=== PATIENT | male | born 1970 | race Caucasian/White ===

== ENCOUNTER → 2017-04-15 | Day surgery (SDC) | payer BC ==
[~2017-04-15] MED LIST: BUPIVACAINE HCL PF 0.75% 30 ML VIAL ONE; BUPIVACAINE/EPINEPHRINE 0.25% 50 ML VIAL ONE; EPINEPHrine HCL (1:1000) 1 MG/ML VIAL OTHER ONE; LACTATED RINGER'S 1000 ML INJ 1,000 ML ONE; LIDOCAINE 1.5%/EPINEPHrine 1:200,000 PF SOLN 30 ML AMP ONE; MIDAZOLAM HCL 5 MG/ML VIAL (1 ML) ONE; ONDANSETRON HCL 4 MG/2 ML VIAL IV PUSH ONE; PROPOFOL 200 MG/20 ML AMP IV ONE; ceFAZolin INJ 1,000 MG VIAL ONE
--- NOTE | 2017-04-15 11:40 | TN ---
cc: ALCIDES MATTHEW M.D. DATE OF SURGERY 04/15/2017 PREOPERATIVE DIAGNOSIS 1. Right shoulder rotator cuff tendonitis and impingement. 2. 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 POSTOPERATIVE DIAGNOSIS 1. Right shoulder rotator cuff tendonitis and impingement. 2. 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 PROCEDURE PERFORMED 1. Right shoulder arthroscopy with subacromial decompression (acromioplasty and coracoacromial ligament release) 2. Right shoulder arthroscopy with partial distal clavicle excision (10mm). SURGEON Alcides Matthew MD ANESTHESIA General via laryngeal mask augmented by interscalene block and local infiltration. BLOOD LOSS Minimal FLUID REPLACEMENT 900 cc's of crystalloid. SPECIMEN No specimens were sent. COUNTS All counts were correct. IMPLANTS There were no implants. COMPLICATIONS There were no intraoperative complications. INDICATIONS FOR THE PROCEDURE Mr. Early is a 46-year-old gentleman who has been experiencing problems with persistent right shoulder pain, weakness, stiffness and has had failure to have improvement with conservative treatment that has included medications, injections, and activity modification and strengthening program. As a result of his persistent symptoms, he was given the option for surgical decompression and he elected to move forward with it as opposed to going through repetitive injections. He was aware of the risks, benefits, potential complications and limitations of the procedure and a full written informed consent was obtained. DESCRIPTION OF PROCEDURE After the patient was appropriately identified in the holding area, he had correctly marked his right shoulder and I had initialed it as well. He was then given one gram of intravenous Ancef as prophylactic antibiotic and then also underwent an ultrasound-guided interscalene block by anesthesia. At this time, he was taken into the operating suite where he was placed under general laryngeal mask anesthetic by Dr. Ortega and then he was carefully placed in the lateral decubitus position with the right side up and the left side down on a beanbag well padded with pillows between the legs and appropriate padding over all bony prominences. He had a axillary roll placed as well. He then had an Protek-dorrex RxVault.in arm ernst applied to the right arm keeping him at approximately 45 degrees of abduction and neutral flexion. I initially started the procedure with 10 pounds of weight. He was then prepped with alcohol and Hibiclens and then draped in the normal standard fashion including impervious drape over the mid arm all the way down to the hand. At this time, a brief time-out was held confirming the right shoulder was the appropriate surgical site. The team was in agreement and the case was now begun. At this time, a standard posterior glenohumeral portal was established. I made the incision slightly more proximal in order to be able to redirected it in the subacromial space later. I was able to get into the glenohumeral joint without difficulty. Minimal effusion was appreciated. There was no evidence of any significant chondromalacia, labral tear, or biceps lesion. There was also no evidence of any rotator cuff tear. There was no need for additional portals in the joint. I suction decompressed it and attention was now directed to the subacromial space. The subacromial space was initially entered from behind through the modified posterior glenohumeral portal and then I made an accessory portal almost directly lateral at the subacromial space. As soon as the scope entered into the subacromial space, there was significant impingement appreciated both at the level of the acromion as well as at the level of the distal clavicle. I began performing a soft tissue decompression consisting of bursectomy, as well as removing some of the scar like tissue that had begun to form on the surface of the acromion. A small synovial plica type shelf was seen just over the lateral edge of the shoulder as well that I debrided. There was some erythema on the surface of the cuff and some very superficial fraying of some of the suprspinatus fibers , but no evidence of any significant depth to this was appreciated. The arm was placed in further traction of 5 pounds in order to further visualize the cuff in detail and no evidence of any tear was identified. At this time after performing coracoacromial acromial ligament release with electrocautery, I was able to see that there was a large anterior acromial spur that was causing high grade subacromial impingement. I performed a generous acromioplasty progressively taken that with the use of a high-speed bur. I removed it until the undersurface the acromion was flat and there was no longer any subacromial impingement present. I now took the underwater electrocautery and ran it along the anterolateral corner to be certain that we were as far lateral as we needed to be and then all the way anteriorly to be certain that there was not residual spur that was left behind. A nice flat roof was appreciated and the cuff was well decompressed under the acromion. Attention was now directed to the acromioclavicular joint. There was both arthritic change appreciated at the interface between the two surfaces, as well as osteophyte formation that was projecting inferiorly. I went ahead and used the high-speed bur to remove approximately 9-10 mm of distal clavicle. I swept it upwards doing a modified Simin procedure as well and I was able to decompress it all the way to the subcutaneous surface of the joint. I was able to palpate through the skin and there was no evidence of significant osteophytes on the cephalad surface. The acromioclavicular ligaments were not disrupted anteriorly or posteriorly or superiorly. The coracoclavicular ligament was completely intact as well. At this time, I thoroughly irrigated the joint and suctioned decompressed as much of the debris as possible and I went ahead and visualized from straight lateral portal to be certain that we had adequately performed the acromioplasty and we had. There was no longer any curvature of the acromion and the roof was fully flat. There was no evidence of any active bleeding and the AC joint appeared to be well decompressed also. At this time, although instruments were removed after suction decompressing once again, the portals were closed with 3-0 nylon simple sutures, two were placed in each incision. I then injected 20 cc of 0.25% Marcaine with epinephrine into the subcutaneous areas around each incision and then the rest of it in the subacromial space. Following that, I went ahead and applied Xeroform, 4x4s, ABD's, and foam tape was then applied. He was awoken from anesthesia and was rolled back supine. He was placed into a standard sling and taken to recovery in stable condition. Appropriate postoperative orders have been written. Alcides Matthew MD Electronically Signed Alcides Matthew MD SIS/YUDITH :08 AM /11:22 AM MATTHEW
== END | disposition home or self-care (01) ==
LOC: ESDC 07:20
PROVIDERS: ATTEND Orthopaedic Surgery Sports Medicine
DX: M75.41 Impingement syndrome of right shoulder (principal); M19.011 Primary osteoarthritis, right shoulder
CPT/HCPCS: 01630; 01991; 29824; 29826; 64417; J0171; J0690; J2250; J2405; J7120